=== PATIENT | female | born 1990 | race Two or more races ===

== ENCOUNTER 2018-12-18 14:16 | Emergency (ER) | payer MEDICAID ==
[~2018-12-18] VITALS: Ht 165.1 cm; Wt 72.6 kg
[2018-12-18 14:42] VITALS: Ht 165.1 cm; Wt 72.6 kg
[2018-12-18 15:48] VITALS: BP 120/73
== END 2018-12-18 15:48 | disposition home or self-care (01) ==
LOC: ED 14:16
DX: J03.90 Acute tonsillitis, unspecified (principal)